=== PATIENT | female | born 1995 | race Caucasian/White ===

== ENCOUNTER → 2024-01-02 16:35 | Outpatient (REF) | payer BC, SELFPAY | LOC: RAD 16:35 | PROVIDERS: ATTENDING PHYSICIAN Family Medicine | DX: O46.90 Antepartum hemorrhage, unspecified, unspecified trimester (principal) | CPT/HCPCS: 76830; 76856 ==

== ENCOUNTER → 2024-07-14 16:31 | Outpatient (REF) | payer BC, SELFPAY | LOC: PNTC 16:31 | PROVIDERS: ATTENDING PHYSICIAN Advanced Practice Midwife | DX: Z34.82 Encounter for supervision of other normal pregnancy, second trimester (principal) | CPT/HCPCS: 76811 ==

== ENCOUNTER → 2024-09-07 15:36 | Outpatient (REF) | payer BC, SELFPAY | LOC: PNTC 15:36 | PROVIDERS: ATTENDING PHYSICIAN Advanced Practice Midwife | DX: O99.320 Drug use complicating pregnancy, unspecified trimester (principal) | CPT/HCPCS: 76816 ==

== ENCOUNTER 2024-11-20 15:25 | Inpatient (IN) | payer BC, SELFPAY ==
[2024-11-20 15:41] VITALS: BP 113/66; BMI 28.4
[2024-11-20] MEDS: LR 1000 IV ×2 (15:45→18:56)
[2024-11-20 16:10] LABS: % Basophils 0.1 % (0-2); % Immature Granulocytes 0.8 % (0-0.5); % Lymphocytes 18.9 % (20.5-51.1); % Monocytes 5.8 % (1.7-9.3); % Neutrophils 73.4 % (42.2-75.2); Absolute Eosinophils 0.1 10^3/uL (0-0.7); Absolute Immature Granulocytes 0.1 10^3/uL (0-0.05); Absolute Lymphocytes 2.6 10^3/uL (1.2-3.4); Absolute Monocytes 0.8 10^3/uL (0.1-0.6); Hematocrit 36.7 % (37.0-47.0); Hemoglobin 12.9 g/dL (12.0-16.0); Mean Corp Hgb Conc. 35.1 g/dL (33.0-37.0); Mean Corpuscular Hgb 34.2 pg (27.0-31.0); Mean Corpuscular Volume 97.3 fL (81.0-99.0); Mean Platelet Volume 9.4 fL (7.4-10.4); Nucleated Red Blood Cells % 0 %; Platelet Count 162 10^3/uL (130-400); Red Blood Cell Count 3.77 10^6/uL (4.20-5.40); Red Cell Dist. Width 13.8 % (11.5-14.5); White Blood Cell Count 13.6 10^3/uL (4.8-10.8)
[2024-11-20] MEDS: SUBLIMAZE 100 MCG EPIDURAL (16:49)
[2024-11-20] MEDS: FENTANYL/BUPIVACAINE 100 EPIDURAL (16:51)
[2024-11-20] MEDS: PITOCIN 30 UNITS/NSS 500 ML IV (18:57)
[2024-11-20] MEDS: SILVER NITRATE APPLICATOR 1 EACH TOPICAL (21:15)
[2024-11-20] MEDS: METHERGINE INJECTION 0.2 MG IM (22:40)
[2024-11-20] MEDS: ZOLOFT 25 MG PO (23:16)
[2024-11-20] MEDS: ZOLOFT 100 MG PO (23:16)
[2024-11-21] MEDS: TYLENOL 650 MG PO ×5 (00:22→22:08)
[2024-11-21] MEDS: MOTRIN 600 MG PO ×4 (00:23→18:47)
[2024-11-21 05:16] LABS: Hematocrit 36.3 % (37.0-47.0); Hemoglobin 12.4 g/dL (12.0-16.0)
[2024-11-21] MEDS: SENOKOT-S 1 TABLET PO (09:58)
[2024-11-21] MEDS: ZOLOFT 25 MG PO (20:22)
[2024-11-21] MEDS: ZOLOFT 100 MG PO (20:22)
[2024-11-22] MEDS: MOTRIN 600 MG PO ×2 (00:48→07:26)
[2024-11-22] MEDS: SENOKOT-S 1 TABLET PO (07:27)
[2024-11-22] MEDS: TYLENOL 650 MG PO (07:27)
[2024-11-24 15:54] LABS: Syphilis/T. pallidum Ab Reflex Negative (Negative)
== END 2024-11-22 10:45 | disposition home or self-care (01) | DRG 768 ==
LOC: LDRP 15:25
PROVIDERS: Obstetrics & Gynecology; ADMITTING PHYSICIAN Advanced Practice Midwife; FAMILY PHYSICIAN Family Medicine
PROC: 4A0HXCZ Measurement of Products of Conception, Cardiac Rate, External Approach (ICD-10-PCS; 2024-11-20)
PROC: 0UQJXZZ Repair Clitoris, External Approach (ICD-10-PCS; 2024-11-20)
PROC: 0UBMXZZ Excision of Vulva, External Approach (ICD-10-PCS; 2024-11-20)
PROC: 10E0XZZ Delivery of Products of Conception, External Approach (ICD-10-PCS; 2024-11-20)
DX: O99.344 Other mental disorders complicating childbirth (principal); Z37.0 Single live birth; O76 Abnormality in fetal heart rate and rhythm complicating labor and delivery; O70.0 First degree perineal laceration during delivery; O99.892 Other specified diseases and conditions complicating childbirth; Z3A.38 38 weeks gestation of pregnancy; Z79.899 Other long term (current) drug therapy
CPT/HCPCS: 88304; 36415; 85014; 85018; 85025; 86780; 86850; 86900; 86901; 87491; 87591